=== PATIENT | female | born 1935 | race Asian ===

== ENCOUNTER 2018-06-22 06:45 | Inpatient (IN) | payer MEDICAID, MEDICARE ==
[~2018-06-22] VITALS: Ht 154.9 cm; Wt 58.0 kg
[~2018-06-22 06:45] MED LIST: ACET-66 PO; ACET-784 PR; ASPI81 PO; ATOR80TA PO; BISA10S PR; INSU100I15 SQ; METO25XL PO; MOM30 PO; ONDA4 PO; RANO500T3 PO; SITA100 PO; SLOMG PO
[2018-06-22] MEDS ORDERED: SODIUM CHLORIDE 0.9% 1,000 ML IV ONE ×4 (07:00→11:15)
[2018-06-22] MEDS ORDERED: RAPID SEQUENCE KIT [RSI] 1 EACH KIT ONE (07:07)
[2018-06-22] MEDS ORDERED: SUCCINYLCHOLINE CHLORIDE 20 MG/ML 10 ML VIAL ONE (07:07)
[2018-06-22] MEDS ORDERED: INSLAN SQ (07:47)
[2018-06-22] MEDS ORDERED: PROPOFOL 1000 MG/ISO-OSM 100 ML IV PRN (08:07)
[2018-06-22 08:08] LABS: BASOPHILS % (AUTO) 0.5 % (0.0-2.0); EOSINOPHILS % (AUTO) 0 % (1.0-6.0); HEMATOCRIT 47.6 % (36-46); HEMOGLOBIN 15.2 g/dL (12.0-16.0); LYMPHOCYTES # (AUTO) 0.8 K/uL (1.0-4.8); LYMPHOCYTES % (AUTO) 5.8 % (22.0-44.0); MEAN CORPUSCULAR HEMOGLOBIN 32.3 pg (26.0-34.0); MEAN CORPUSCULAR HGB CONC 31.9 G/dL (31.0-37.0); MEAN CORPUSCULAR VOLUME 101 fL (80-100); MONOCYTES # (AUTO) 1.3 K/uL (0.1-1.0); MONOCYTES % (AUTO) 9.5 % (2.0-9.0); NEUTROPHILS # (AUTO) 11.4 K/uL (1.8-7.7); NEUTROPHILS % (AUTO) 84.2 % (40.0-70.0); PLATELET COUNT (AUTO) 261 K/uL (150-450); RED BLOOD CELL COUNT(AUTO) 4.71 MIL/uL (4.00-5.20); RED CELL DISTRIBUTION WIDTH 14.3 % (11.5-14.5)
[2018-06-22 08:31] LABS: ALBUMIN 2.7 g/dL (3.4-5.0); BILIRUBIN,TOTAL 0.6 mg/dL (0.1-1.0); CALCIUM, TOTAL 8.2 mg/dL (8.8-10.5); CREATININE 2.24 mg/dL (0.60-1.30); TOTAL PROTEIN, SERUM 7.1 g/dL (6.4-8.2)
[2018-06-22 08:32] LABS: LACTIC ACID 3.4 mmol/L (0.4-2.0)
[2018-06-22 08:34] LABS: PROTHROMBIN TIME 10.4 SEC (9.4-11.6)
[2018-06-22] MEDS ORDERED: INSULIN REGULAR, HUMAN 100 UNITS/ML IVP ONE (08:45)
[2018-06-22] MEDS ORDERED: PHENYLEPHRINE 200 MG/D5%-WATER 250 ML IV PRN (09:00)
[2018-06-22] MEDS ORDERED: PIPERACILLIN/TAZO 3.375 GM/D5W 50 ML IV ONE (09:00)
[2018-06-22 09:25] LABS: APPEARANCE,URINE CLEAR (CLEAR); BILIRUBIN,URINE NEGATIVE (NEGATIVE); GLUCOSE, URINE (UA) >=1000 mg/dL (NEGATIVE); KETONES,URINE >=80 mg/dL (NEGATIVE); LEUKOCYTE ESTERASE ,URINE NEGATIVE (NEGATIVE); NITRATE,URINE NEGATIVE (NEGATIVE); OCCULT BLOOD,URINE MODERATE (NEGATIVE); PROTEIN,URINE POS 1+ (NEGATIVE); UROBILINOGEN,URINE 0.2 mg/dL (<=1.0)
[2018-06-22 09:29] LABS: GLUCOSE,POINT OF CARE 493 MG/DL (70-110)
[2018-06-22 09:41] LABS: BACTERIA,URINE Moderate /HPF (None Seen); FINE GRANULAR CASTS,URINE 0-2 /LPF (None Seen); SQUAMOUS EPITHELIAL CELL,UR Few /LPF (None Seen)
[2018-06-22] MEDS ORDERED: HEPARIN SODIUM 25000 UNITS/D5W 250 ML IV PRN ×2 (10:12→18:05)
[2018-06-22 10:14] LABS: GLUCOSE,POINT OF CARE 472 MG/DL (70-110)
[2018-06-22] MEDS ORDERED: INSULIN REGULAR, HUMAN 100 UNITS in SODIUM CHLORIDE 0.9% 99 ML IV PRN ×4 (10:15→11:57)
[2018-06-22] MEDS ORDERED: HEPARIN SODIUM,PORCINE 5,000 UNITS/ML VIAL IVP ONE ×3 (10:15→18:15)
[2018-06-22] MEDS ORDERED: PANTOPRAZOLE SODIUM 40 MG/VIAL IVP SCH (10:15)
[2018-06-22] MEDS ORDERED: HEPARIN SODIUM,PORCINE 5,000 UNITS/ML VIAL IVP PRN ×4 (10:15→18:15)
[2018-06-22 11:53] LABS: GLUCOSE,POINT OF CARE 526 MG/DL (70-110)
[2018-06-22] MEDS ORDERED: SODIUM CHLORIDE 0.45% 1,000 ML IV PRN (11:57)
[2018-06-22] MEDS ORDERED: SODIUM CHLORIDE 0.9% 1,000 ML IV SCH (11:57)
[2018-06-22] MEDS ORDERED: POTASSIUM CHL 20 MEQ/0.45% NS 1,000 ML IV PRN (11:57)
[2018-06-22 12:00] VITALS: BP 142/56
[2018-06-22] MEDS ORDERED: SUCCINYLCHOLINE CHLORIDE 20 MG/ML 10 ML VIAL IVP ONE (12:00)
[2018-06-22] MEDS ORDERED: ETOMIDATE 2 MG/ML 10 ML VIAL IVP ONE (12:00)
[2018-06-22] MEDS ORDERED: DEXTROSE 50%-WATER 25 GM/50 ML SYRINGE IVP PRN (12:00)
[2018-06-22 12:03] LABS: OCCULT BLOOD,GASTRIC FLUID POSITIVE (NEGATIVE)
[2018-06-22 12:35] LABS: CALCIUM, TOTAL 7.8 mg/dL (8.8-10.5); CREATININE 2.09 mg/dL (0.60-1.30); PHOSPHORUS 6.4 mg/dL (2.5-4.9); POTASSIUM 3.8 mmol/L (3.5-5.1)
[2018-06-22] MEDS: INSULIN REGULAR, HUMAN 100 UNITS/ML IVP PRN ×9 (13:26→23:06)
[2018-06-22] MEDS ORDERED: 0.9% SODIUM CHLORIDE 10 ML SYRINGE IVP PRN (13:30)
[2018-06-22] MEDS ORDERED: ONDANSETRON HCL 4 MG/2 ML VIAL IVP PRN (13:30)
[2018-06-22] MEDS: ASPIRIN 81 MG CHEWABLE TABLET PO SCH (15:31)
[2018-06-22] MEDS ORDERED: SODIUM CHLORIDE 0.9% 500 ML IV ONE (15:55)
[2018-06-22 16:00] VITALS: BP 142/64
[2018-06-22] MEDS ORDERED: ASPIRIN 81 MG CHEWABLE TABLET PO SCH (16:15)
[2018-06-22] MEDS ORDERED: DEXTROSE 5%-WATER 1,000 ML IV SCH (16:15)
[2018-06-22] MEDS: POTASSIUM CHLORIDE 40 MEQ in SODIUM CHLORIDE 0.45% 1,000 ML IV PRN ×2 (16:19→23:55)
[2018-06-22] MEDS ORDERED: SODIUM BICARBONATE 150 MEQ in DEXTROSE 5%-WATER 1,000 ML IV ONE (16:45)
[2018-06-22 16:46] LABS: ABG A-A DIFF O2 63.3 mmHg (10-20.0); ABG BASE EXCESS -21.1 mmol/L (-2.0-3.0); ABG CARBOXYHEMOGLOBIN 0.7 % (0.0-1.5); ABG HCO3 10.9 mmol/L (22.0-26.0); ABG METHEMOGLOBIN 0.4 % (0.0-1.5); ABG OXYGEN CONTENT 19.6 mL/dL (15.0-23.0); ABG OXYGEN SATURATION 99.6 % (95.0-98.0); ABG OXYHEMOGLOBIN 98.5 % (94.0-100.0); ABG PH 7.215 (7.35-7.450); ABG TOTAL HEMOGLOBIN 13.7 G/dL (12.0-18.0); PO2, ARTERIAL BG 274.5 mmHg (71.0-79.0); SOURCE, BLOOD GAS ARTERIAL; TEMPERATURE, FAHRENHEIT, BG 97.5 FAHREN (96.0-98.6)
[2018-06-22 16:47] LABS: ABG PCO2 17 mmHg (35-45); O2 DEVICE,BLOOD GAS VENTILATOR (ROOM AIR); PEEP,BG 5 cm H2O; SITE, BLOOD GAS ARTERIAL LINE; VT, ABG 400 ml
[2018-06-22] MEDS ORDERED: HEPARIN SODIUM,PORCINE 1,000 UNITS/ML VIAL IVP ONE ×2 (17:00)
[2018-06-22] MEDS ORDERED: SODIUM CHLORIDE 0.9% 250 ML IV ONE ×3 (17:03→20:19)
[2018-06-22 17:18] LABS: BASOPHILS % (AUTO) 1.2 % (0.0-2.0); EOSINOPHILS % (AUTO) 0.3 % (1.0-6.0); HEMATOCRIT 38.9 % (36-46); HEMOGLOBIN 13.3 g/dL (12.0-16.0); LYMPHOCYTES # (AUTO) 1.4 K/uL (1.0-4.8); LYMPHOCYTES % (AUTO) 9.9 % (22.0-44.0); MEAN CORPUSCULAR HEMOGLOBIN 32.3 pg (26.0-34.0); MEAN CORPUSCULAR HGB CONC 34.1 G/dL (31.0-37.0); MEAN CORPUSCULAR VOLUME 95 fL (80-100); MONOCYTES % (AUTO) 7.1 % (2.0-9.0); NEUTROPHILS # (AUTO) 11.3 K/uL (1.8-7.7); NEUTROPHILS % (AUTO) 81.5 % (40.0-70.0); PLATELET COUNT (AUTO) 196 K/uL (150-450); RED BLOOD CELL COUNT(AUTO) 4.11 MIL/uL (4.00-5.20); RED CELL DISTRIBUTION WIDTH 13.5 % (11.5-14.5)
[2018-06-22 17:29] LABS: CALCIUM, TOTAL 7.7 mg/dL (8.8-10.5); CREATININE 1.86 mg/dL (0.60-1.30); MAGNESIUM 1.4 mg/dL (1.80-2.40); POTASSIUM 3.1 mmol/L (3.5-5.1)
[2018-06-22 17:30] LABS: INR 1.1 (0.9-1.1); PROTHROMBIN TIME 11.1 SEC (9.4-11.6)
[2018-06-22] MEDS ORDERED: VANCOMYCIN HCL 1 GM/D5% WATER 200 ML IV ONE (17:30)
[2018-06-22] MEDS: PIPERACILLIN SODIUM/TAZOBACTAM 2.25 GM in DEXTROSE 5%-WATER 50 ML IV SCH (17:30)
[2018-06-22 17:31] LABS: PHOSPHORUS 1.3 mg/dL (2.5-4.9)
[2018-06-22] MEDS ORDERED: SODIUM PHOS,M-BASIC-D-BASIC 20 MEQ in DEXTROSE 5%-WATER 100 ML IV ONE (18:00)
[2018-06-22] MEDS ORDERED: MAGNESIUM SULFATE 3 GM in DEXTROSE 5%-WATER 100 ML IV ONE (18:00)
[2018-06-22] MEDS: HYDROCORTISONE SOD SUCC 100 MG/2 ML VIAL IVP SCH (18:26)
[2018-06-22] MEDS: ATORVASTATIN CALCIUM 40 MG TABLET PO SCH (18:27)
[2018-06-22] MEDS: DEXTROSE 5%-0.45% SODIUM CHL 1,000 ML IV PRN (18:56)
[2018-06-22 19:11] LABS: ABG A-A DIFF O2 89.4 mmHg (10-20.0); ABG BASE EXCESS -17.3 mmol/L (-2.0-3.0); ABG CARBOXYHEMOGLOBIN 0.1 % (0.0-1.5); ABG HCO3 12.9 mmol/L (22.0-26.0); ABG METHEMOGLOBIN 0.3 % (0.0-1.5); ABG OXYGEN CONTENT 18.4 mL/dL (15.0-23.0); ABG OXYGEN SATURATION 99.4 % (95.0-98.0); ABG PH 7.311 (7.35-7.450); ABG TOTAL HEMOGLOBIN 12.8 G/dL (12.0-18.0); PO2, ARTERIAL BG 249.5 mmHg (71.0-79.0); SOURCE, BLOOD GAS ARTERIAL; TEMPERATURE, FAHRENHEIT, BG 93.4 FAHREN (96.0-98.6)
[2018-06-22 19:12] LABS: ABG PCO2 19 mmHg (35-45); O2 DEVICE,BLOOD GAS VENTILATOR (ROOM AIR); SITE, BLOOD GAS ARTERIAL LINE
[2018-06-22 19:13] LABS: PEEP,BG 5 cm H2O; VT, ABG 400 ml
[2018-06-22 20:00] VITALS: BP 166/45
[2018-06-22] MEDS: POTASSIUM CHL 10 MEQ/WATER 50 ML IV SCH ×4 (20:14→22:07)
[2018-06-22 20:44] LABS: CALCIUM, TOTAL 7.8 mg/dL (8.8-10.5); CREATININE 2.08 mg/dL (0.60-1.30)
[2018-06-22 20:45] LABS: POTASSIUM 2.8 mmol/L (3.5-5.1)
[2018-06-22] MEDS: PANTOPRAZOLE SODIUM 40 MG/VIAL IVP SCH (21:41)
[2018-06-22] MEDS: PROPOFOL 1000 MG/ISO-OSM 100 ML IV PRN (23:57)
[2018-06-23] VITALS: BP 105/25
[2018-06-23] MEDS: PIPERACILLIN SODIUM/TAZOBACTAM 2.25 GM in DEXTROSE 5%-WATER 50 ML IV SCH ×4 (00:06→23:49)
[2018-06-23] MEDS: HYDROCORTISONE SOD SUCC 100 MG/2 ML VIAL IVP SCH ×5 (00:07→23:50)
[2018-06-23 01:28] LABS: CALCIUM, TOTAL 7.6 mg/dL (8.8-10.5); CREATININE 1.93 mg/dL (0.60-1.30); POTASSIUM 3.3 mmol/L (3.5-5.1)
[2018-06-23] MEDS ORDERED: POTASSIUM CHLORIDE 10% 40 MEQ/30 ML LIQUID UDCUP NG ONE (02:00)
[2018-06-23] MEDS: POTASSIUM CHL 10 MEQ/WATER 50 ML IV SCH ×2 (02:20→03:30)
[2018-06-23 04:00] VITALS: BP 105/35
[2018-06-23 04:41] LABS: EOSINOPHILS % (AUTO) 0 % (1.0-6.0); HEMATOCRIT 33.6 % (36-46); HEMOGLOBIN 11.9 g/dL (12.0-16.0); LYMPHOCYTES # (AUTO) 0.2 K/uL (1.0-4.8); LYMPHOCYTES % (AUTO) 2.1 % (22.0-44.0); MEAN CORPUSCULAR HEMOGLOBIN 32.6 pg (26.0-34.0); MEAN CORPUSCULAR HGB CONC 35.4 G/dL (31.0-37.0); MEAN CORPUSCULAR VOLUME 92 fL (80-100); MONOCYTES # (AUTO) 0.1 K/uL (0.1-1.0); MONOCYTES % (AUTO) 0.8 % (2.0-9.0); NEUTROPHILS # (AUTO) 8.7 K/uL (1.8-7.7); PLATELET COUNT (AUTO) 140 K/uL (150-450); RED BLOOD CELL COUNT(AUTO) 3.65 MIL/uL (4.00-5.20); RED CELL DISTRIBUTION WIDTH 13.5 % (11.5-14.5)
[2018-06-23 04:45] LABS: NEUTROPHILS % (AUTO) 97.1 % (40.0-70.0)
[2018-06-23 05:07] LABS: ALBUMIN 1.9 g/dL (3.4-5.0); BILIRUBIN,TOTAL 0.3 mg/dL (0.1-1.0); CALCIUM, TOTAL 7.3 mg/dL (8.8-10.5); CREATININE 1.78 mg/dL (0.60-1.30); MAGNESIUM 2.6 mg/dL (1.80-2.40); TOTAL PROTEIN, SERUM 5.1 g/dL (6.4-8.2)
[2018-06-23 05:08] LABS: GLUCOMETER DEV NAME(LOC) PVLAB146; GLUCOSE,POINT OF CARE 271 MG/DL (70-110)
[2018-06-23 05:08] LABS: GLUCOMETER DEV NAME(LOC) PVLAB146; GLUCOSE,POINT OF CARE 270 MG/DL (70-110)
[2018-06-23 05:08] LABS: GLUCOMETER DEV NAME(LOC) PVLAB146; GLUCOSE,POINT OF CARE 421 MG/DL (70-110)
[2018-06-23 05:08] LABS: GLUCOMETER DEV NAME(LOC) PVLAB146; GLUCOSE,POINT OF CARE 531 MG/DL (70-110)
[2018-06-23 05:08] LABS: GLUCOMETER DEV NAME(LOC) PVLAB146; GLUCOSE,POINT OF CARE 425 MG/DL (70-110)
[2018-06-23 05:08] LABS: GLUCOMETER DEV NAME(LOC) PVLAB146; GLUCOSE,POINT OF CARE 253 MG/DL (70-110)
[2018-06-23 05:08] LABS: GLUCOMETER DEV NAME(LOC) PVLAB146; GLUCOSE,POINT OF CARE 237 MG/DL (70-110)
[2018-06-23 05:08] LABS: GLUCOMETER DEV NAME(LOC) PVLAB146; GLUCOSE,POINT OF CARE 353 MG/DL (70-110)
[2018-06-23 05:08] LABS: GLUCOMETER DEV NAME(LOC) PVLAB146; GLUCOSE,POINT OF CARE 305 MG/DL (70-110)
[2018-06-23 05:08] LABS: GLUCOMETER DEV NAME(LOC) PVLAB146; GLUCOSE,POINT OF CARE 304 MG/DL (70-110)
[2018-06-23 05:08] LABS: GLUCOMETER DEV NAME(LOC) PVLAB146; GLUCOSE,POINT OF CARE 223 MG/DL (70-110)
[2018-06-23 05:09] LABS: PHOSPHORUS 0.6 mg/dL (2.5-4.9)
[2018-06-23] MEDS ORDERED: SODIUM PHOS,M-BASIC-D-BASIC 30 MEQ in DEXTROSE 5%-WATER 150 ML IV ONE (06:00)
[2018-06-23 06:29] LABS: GLUCOMETER DEV NAME(LOC) PVLAB146; GLUCOSE,POINT OF CARE 178 MG/DL (70-110)
[2018-06-23 06:29] LABS: GLUCOMETER DEV NAME(LOC) PVLAB146; GLUCOSE,POINT OF CARE 184 MG/DL (70-110)
[2018-06-23] MEDS: DEXTROSE 5%-0.45% SODIUM CHL 1,000 ML IV PRN (06:47)
[2018-06-23 06:53] LABS: GLUCOSE,POINT OF CARE 206 MG/DL (70-110)
[2018-06-23 06:53] LABS: GLUCOSE,POINT OF CARE 204 MG/DL (70-110)
[2018-06-23 06:53] LABS: GLUCOSE,POINT OF CARE 191 MG/DL (70-110)
[2018-06-23 06:53] LABS: GLUCOSE,POINT OF CARE 184 MG/DL (70-110)
[2018-06-23 07:23] LABS: GLUCOMETER DEV NAME(LOC) PVLAB146; GLUCOSE,POINT OF CARE 162 MG/DL (70-110)
[2018-06-23 07:50] LABS: ABG A-A DIFF O2 39.2 mmHg (10-20.0); ABG BASE EXCESS -12.1 mmol/L (-2.0-3.0); ABG CARBOXYHEMOGLOBIN 0.3 % (0.0-1.5); ABG HCO3 16.5 mmol/L (22.0-26.0); ABG METHEMOGLOBIN 0.2 % (0.0-1.5); ABG OXYGEN CONTENT 16.9 mL/dL (15.0-23.0); ABG OXYHEMOGLOBIN 98.5 % (94.0-100.0); ABG PCO2 20 mmHg (35-45); ABG TOTAL HEMOGLOBIN 11.9 G/dL (12.0-18.0); PO2, ARTERIAL BG 187.4 mmHg (71.0-79.0); SOURCE, BLOOD GAS ARTERIAL; TEMPERATURE, FAHRENHEIT, BG 97.3 FAHREN (96.0-98.6)
[2018-06-23 07:51] LABS: O2 DEVICE,BLOOD GAS VENTILATOR (ROOM AIR); PEEP,BG 5 cm H2O; SITE, BLOOD GAS ARTERIAL LINE; VT, ABG 400 ml
[2018-06-23 08:00] VITALS: BP 146/51
[2018-06-23] MEDS ORDERED: VANCOMYCIN HCL 500 MG in DEXTROSE 5%-WATER 100 ML IV ONE (08:00)
[2018-06-23 10:13] LABS: GLUCOMETER DEV NAME(LOC) PVLAB146; GLUCOSE,POINT OF CARE 106 MG/DL (70-110)
[2018-06-23 10:13] LABS: GLUCOMETER DEV NAME(LOC) PVLAB146; GLUCOSE,POINT OF CARE 117 MG/DL (70-110)
[2018-06-23 10:13] LABS: GLUCOMETER DEV NAME(LOC) PVLAB146; GLUCOSE,POINT OF CARE 147 MG/DL (70-110)
[2018-06-23 11:06] LABS: CALCIUM, TOTAL 7.1 mg/dL (8.8-10.5); CREATININE 1.59 mg/dL (0.60-1.30); PHOSPHORUS 2.9 mg/dL (2.5-4.9); POTASSIUM 5.2 mmol/L (3.5-5.1)
[2018-06-23 11:08] LABS: APPEARANCE,URINE CLOUDY (CLEAR); BILIRUBIN,URINE NEGATIVE (NEGATIVE); GLUCOSE, URINE (UA) 100 mg/dL (NEGATIVE); KETONES,URINE NEGATIVE (NEGATIVE); LEUKOCYTE ESTERASE ,URINE NEGATIVE (NEGATIVE); NITRATE,URINE NEGATIVE (NEGATIVE); OCCULT BLOOD,URINE MODERATE (NEGATIVE); PROTEIN,URINE NEGATIVE (NEGATIVE); UROBILINOGEN,URINE 0.2 mg/dL (<=1.0)
[2018-06-23 11:10] LABS: PROTEIN,URINE RANDOM 11 mg/dL (0-11.9); SODIUM,URINE RANDOM 15 mmol/l (20-110); UREA NITROGEN,URINE RANDOM 156 mg/dL (350-1000)
[2018-06-23] MEDS: PANTOPRAZOLE SODIUM 40 MG/VIAL IVP SCH ×2 (11:11→20:43)
[2018-06-23] MEDS: ATORVASTATIN CALCIUM 40 MG TABLET PO SCH (11:11)
[2018-06-23] MEDS: ASPIRIN 81 MG CHEWABLE TABLET PO SCH (11:11)
[2018-06-23 11:14] LABS: CREATININE,URINE RANDOM < 5.0 mg/dL (30.0-125.0)
[2018-06-23 11:40] LABS: BACTERIA,URINE Moderate /HPF (None Seen); COARSE GRANULAR CASTS,URINE 0-2 /LPF (None Seen); FINE GRANULAR CASTS,URINE 0-2 /LPF (None Seen); WBC,URINE 0-2 /HPF (0-5)
[2018-06-23 12:00] VITALS: BP 145/51
[2018-06-23] MEDS: ACETAMINOPHEN 325 MG TABLET PO PRN (12:59)
[2018-06-23 14:18] LABS: GLUCOMETER DEV NAME(LOC) PVLAB146; GLUCOSE,POINT OF CARE 126 MG/DL (70-110)
[2018-06-23 14:19] LABS: GLUCOMETER DEV NAME(LOC) PVLAB146; GLUCOSE,POINT OF CARE 135 MG/DL (70-110)
[2018-06-23 14:19] LABS: GLUCOMETER DEV NAME(LOC) PVLAB146; GLUCOSE,POINT OF CARE 96 MG/DL (70-110)
[2018-06-23 14:19] LABS: GLUCOMETER DEV NAME(LOC) PVLAB146; GLUCOSE,POINT OF CARE 115 MG/DL (70-110)
[2018-06-23 14:36] LABS: CALCIUM, TOTAL 6.9 mg/dL (8.8-10.5); CREATININE 1.43 mg/dL (0.60-1.30); MAGNESIUM 2.3 mg/dL (1.80-2.40)
[2018-06-23] MEDS ORDERED: DEXTROSE 50%-WATER 25 GM/50 ML SYRINGE IVP PRN (14:45)
[2018-06-23] MEDS: SODIUM CHLORIDE 0.45% 1,000 ML IV SCH (15:51)
[2018-06-23] MEDS: INSULIN LISPRO 100 UNITS/ML SQ PRN ×3 (15:54→23:51)
[2018-06-23 16:00] VITALS: BP 105/36
[2018-06-23] MEDS ORDERED: SODIUM CHLORIDE 0.9% 250 ML IV ONE (16:11)
[2018-06-23] MEDS: PROPOFOL 1000 MG/ISO-OSM 100 ML IV PRN (19:45)
[2018-06-23 20:00] VITALS: BP 118/43
[2018-06-23] MEDS: INSULIN GLARGINE,HUM.REC.ANLOG 100 UNITS/ML SQ SCH (20:48)
[2018-06-24] VITALS: BP 124/49
[2018-06-24] MEDS ORDERED: SODIUM CHLORIDE 0.9% 250 ML IV ONE ×2 (00:08→06:30)
[2018-06-24 04:00] VITALS: BP 136/53
[2018-06-24] MEDS: INSULIN LISPRO 100 UNITS/ML SQ PRN ×2 (04:04→12:54)
[2018-06-24] MEDS: SODIUM CHLORIDE 0.45% 1,000 ML IV SCH ×2 (04:16→14:44)
[2018-06-24 05:10] LABS: CALCIUM, TOTAL 6.5 mg/dL (8.8-10.5); CREATININE 1.38 mg/dL (0.60-1.30); MAGNESIUM 2.3 mg/dL (1.80-2.40); PHOSPHORUS 3.3 mg/dL (2.5-4.9); VANCOMYCIN,RANDOM 14.4 mcg/mL (25.0-50.0)
[2018-06-24 05:28] LABS: GLUCOMETER DEV NAME(LOC) PVLAB146; GLUCOSE,POINT OF CARE 181 MG/DL (70-110)
[2018-06-24] MEDS: HYDROCORTISONE SOD SUCC 100 MG/2 ML VIAL IVP SCH ×3 (06:37→18:08)
[2018-06-24 08:00] VITALS: BP 132/59
[2018-06-24] MEDS: ATORVASTATIN CALCIUM 40 MG TABLET PO SCH (08:07)
[2018-06-24] MEDS: ASPIRIN 81 MG CHEWABLE TABLET PO SCH (08:08)
[2018-06-24] MEDS: PIPERACILLIN SODIUM/TAZOBACTAM 2.25 GM in DEXTROSE 5%-WATER 50 ML IV SCH ×3 (08:08→21:29)
[2018-06-24] MEDS: PANTOPRAZOLE SODIUM 40 MG/VIAL IVP SCH ×2 (08:08→21:27)
[2018-06-24] MEDS: INSULIN GLARGINE,HUM.REC.ANLOG 100 UNITS/ML SQ SCH ×2 (08:40→21:27)
[2018-06-24] MEDS ORDERED: VANCOMYCIN HCL 750 MG in DEXTROSE 5%-WATER 250 ML IV ONE (11:00)
[2018-06-24 11:47] LABS: ABG A-A DIFF O2 29.2 mmHg (10-20.0); ABG BASE EXCESS -3.6 mmol/L (-2.0-3.0); ABG CARBOXYHEMOGLOBIN 0.3 % (0.0-1.5); ABG HCO3 22.4 mmol/L (22.0-26.0); ABG METHEMOGLOBIN 0.3 % (0.0-1.5); ABG OXYGEN CONTENT 15.7 mL/dL (15.0-23.0); ABG OXYHEMOGLOBIN 98.4 % (94.0-100.0); ABG PCO2 27 mmHg (35-45); ABG TOTAL HEMOGLOBIN 11.1 G/dL (12.0-18.0); PO2, ARTERIAL BG 152.6 mmHg (71.0-79.0); SOURCE, BLOOD GAS ARTERIAL; TEMPERATURE, FAHRENHEIT, BG 98.6 FAHREN (96.0-98.6)
[2018-06-24 11:53] LABS: O2 DEVICE,BLOOD GAS VENTILATOR (ROOM AIR); SITE, BLOOD GAS ARTERIAL LINE
[2018-06-24 11:54] LABS: CPAP, BG 0 cm H2O; PRESSURE SUPPORT, BG 8 cm H2O; VENT MODE, BG CPAP (ROOM AIR)
[2018-06-24 12:00] VITALS: BP 117/56
[2018-06-24 14:21] LABS: PROTHROMBIN TIME 10.1 SEC (9.4-11.6)
[2018-06-24] MEDS: ACETAMINOPHEN 325 MG TABLET PO PRN (14:47)
[2018-06-24 16:00] VITALS: BP 150/57
[2018-06-24] MEDS ORDERED: SODIUM CHLORIDE 0.9% 500 ML IV ONE (16:22)
[2018-06-24 20:00] VITALS: BP 141/56
[2018-06-25] VITALS: BP 131/53
[2018-06-25] MEDS: HYDROCORTISONE SOD SUCC 100 MG/2 ML VIAL IVP SCH ×4 (00:05→23:50)
[2018-06-25] MEDS: INSULIN LISPRO 100 UNITS/ML SQ PRN ×4 (00:06→23:54)
[2018-06-25 02:43] LABS: GLUCOMETER DEV NAME(LOC) PVLAB146; GLUCOSE,POINT OF CARE 175 MG/DL (70-110)
[2018-06-25] MEDS: PIPERACILLIN SODIUM/TAZOBACTAM 2.25 GM in DEXTROSE 5%-WATER 50 ML IV SCH ×4 (03:41→22:00)
[2018-06-25 03:53] LABS: GLUCOMETER DEV NAME(LOC) PVLAB146; GLUCOSE,POINT OF CARE 138 MG/DL (70-110)
[2018-06-25 04:00] VITALS: BP 140/53
[2018-06-25] MEDS ORDERED: SODIUM CHLORIDE 0.9% 500 ML IV ONE (04:36)
[2018-06-25] MEDS ORDERED: SODIUM CHLORIDE 0.9% 250 ML IV ONE (04:36)
[2018-06-25 05:41] LABS: CREATININE 0.91 mg/dL (0.60-1.30); PHOSPHORUS 2.1 mg/dL (2.5-4.9)
[2018-06-25 05:44] LABS: POTASSIUM 2.9 mmol/L (3.5-5.1)
[2018-06-25] MEDS: POTASSIUM CHL 10 MEQ/WATER 50 ML IV PRN ×7 (06:31→19:57)
[2018-06-25] MEDS: SODIUM CHLORIDE 0.45% 1,000 ML IV SCH ×2 (06:34→19:59)
[2018-06-25] MEDS ORDERED: METOPROLOL SUCCINATE 25 MG ER TABLET PO ONE (07:45)
[2018-06-25] MEDS: VANCOMYCIN HCL 750 MG in DEXTROSE 5%-WATER 250 ML IV SCH (07:46)
[2018-06-25 08:00] VITALS: BP 123/50
[2018-06-25 08:33] LABS: GLUCOMETER DEV NAME(LOC) PVLAB146; GLUCOSE,POINT OF CARE 149 MG/DL (70-110)
[2018-06-25] MEDS: PANTOPRAZOLE SODIUM 40 MG/VIAL IVP SCH ×2 (09:20→21:32)
[2018-06-25] MEDS: ASPIRIN 81 MG CHEWABLE TABLET PO SCH (09:21)
[2018-06-25] MEDS: ATORVASTATIN CALCIUM 40 MG TABLET PO SCH (09:21)
[2018-06-25] MEDS: INSULIN GLARGINE,HUM.REC.ANLOG 100 UNITS/ML SQ SCH ×2 (09:23→21:35)
[2018-06-25] MEDS: POTASSIUM PHOS/SODIUM PHOS MIXTURE 1 POWDER PACKET PO SCH ×2 (09:55→21:32)
[2018-06-25 12:00] VITALS: BP 127/58
[2018-06-25 16:00] VITALS: BP 142/51
[2018-06-25 20:00] VITALS: BP 130/50
[2018-06-25 22:49] LABS: GLUCOMETER DEV NAME(LOC) PVLAB146; GLUCOSE,POINT OF CARE 139 MG/DL (70-110)
[2018-06-25 22:53] LABS: GLUCOSE,POINT OF CARE 154 MG/DL (70-110)
[2018-06-25 22:53] LABS: GLUCOSE,POINT OF CARE 113 MG/DL (70-110)
[2018-06-25 22:53] LABS: GLUCOSE,POINT OF CARE 148 MG/DL (70-110)
[2018-06-25 22:53] LABS: GLUCOSE,POINT OF CARE 101 MG/DL (70-110)
[2018-06-25 22:53] LABS: GLUCOSE,POINT OF CARE 153 MG/DL (70-110)
[2018-06-25 22:53] LABS: GLUCOSE,POINT OF CARE 140 MG/DL (70-110)
[2018-06-25 22:53] LABS: GLUCOSE,POINT OF CARE 115 MG/DL (70-110)
[2018-06-25 22:53] LABS: GLUCOSE,POINT OF CARE 183 MG/DL (70-110)
[2018-06-25 22:53] LABS: GLUCOSE,POINT OF CARE 183 MG/DL (70-110)
[2018-06-26] VITALS: BP 122/62
[2018-06-26] MEDS ORDERED: SODIUM CHLORIDE 0.9% 500 ML IV ONE (03:36)
[2018-06-26] MEDS ORDERED: SODIUM CHLORIDE 0.9% 250 ML IV ONE ×2 (03:36→18:19)
[2018-06-26] MEDS: PIPERACILLIN SODIUM/TAZOBACTAM 2.25 GM in DEXTROSE 5%-WATER 50 ML IV SCH ×4 (03:59→22:48)
[2018-06-26 04:00] VITALS: BP 144/106
[2018-06-26] MEDS: ACETAMINOPHEN 325 MG TABLET PO PRN (04:00)
[2018-06-26 05:17] LABS: BASOPHILS % (AUTO) 0.2 % (0.0-2.0); EOSINOPHILS % (AUTO) 0.1 % (1.0-6.0); HEMATOCRIT 29.6 % (36-46); HEMOGLOBIN 10.5 g/dL (12.0-16.0); LYMPHOCYTES # (AUTO) 0.7 K/uL (1.0-4.8); LYMPHOCYTES % (AUTO) 8.3 % (22.0-44.0); MEAN CORPUSCULAR HEMOGLOBIN 32.9 pg (26.0-34.0); MEAN CORPUSCULAR HGB CONC 35.5 G/dL (31.0-37.0); MEAN CORPUSCULAR VOLUME 93 fL (80-100); MONOCYTES # (AUTO) 0.3 K/uL (0.1-1.0); MONOCYTES % (AUTO) 3.1 % (2.0-9.0); NEUTROPHILS # (AUTO) 7.5 K/uL (1.8-7.7); PLATELET COUNT (AUTO) 72 K/uL (150-450); RED BLOOD CELL COUNT(AUTO) 3.19 MIL/uL (4.00-5.20); RED CELL DISTRIBUTION WIDTH 14.4 % (11.5-14.5)
[2018-06-26 05:39] LABS: ALBUMIN 1.6 g/dL (3.4-5.0); BILIRUBIN,TOTAL 0.3 mg/dL (0.1-1.0); CALCIUM, TOTAL 6.9 mg/dL (8.8-10.5); CREATININE 0.92 mg/dL (0.60-1.30); MAGNESIUM 1.9 mg/dL (1.80-2.40); PHOSPHORUS 1.7 mg/dL (2.5-4.9); POTASSIUM 3.8 mmol/L (3.5-5.1); TOTAL PROTEIN, SERUM 4.9 g/dL (6.4-8.2)
[2018-06-26] MEDS: INSULIN LISPRO 100 UNITS/ML SQ PRN ×2 (06:00→12:00)
[2018-06-26 06:37] LABS: NEUTROPHILS % (AUTO) 88.3 % (40.0-70.0)
[2018-06-26 06:54] LABS: GLUCOSE,POINT OF CARE 158 MG/DL (70-110)
[2018-06-26 06:54] LABS: GLUCOMETER DEV NAME(LOC) PVLAB146; GLUCOSE,POINT OF CARE 142 MG/DL (70-110)
[2018-06-26] MEDS: HYDROCORTISONE SOD SUCC 100 MG/2 ML VIAL IVP SCH ×2 (07:44→16:16)
[2018-06-26] MEDS: VANCOMYCIN HCL 750 MG in DEXTROSE 5%-WATER 250 ML IV SCH (07:44)
[2018-06-26 08:00] VITALS: BP 131/50
[2018-06-26] MEDS ORDERED: SODIUM PHOS,M-BASIC-D-BASIC 20 MEQ in DEXTROSE 5%-WATER 100 ML IV ONE (08:00)
[2018-06-26] MEDS ORDERED: INSULIN GLARGINE,HUM.REC.ANLOG 100 UNITS/ML SQ SCH (09:00)
[2018-06-26] MEDS: ATORVASTATIN CALCIUM 40 MG TABLET PO SCH (09:02)
[2018-06-26] MEDS: PANTOPRAZOLE SODIUM 40 MG/VIAL IVP SCH ×2 (09:02→21:19)
[2018-06-26] MEDS: METOPROLOL TARTRATE 25 MG TABLET PO SCH ×2 (09:02→21:19)
[2018-06-26] MEDS: ASPIRIN 81 MG CHEWABLE TABLET PO SCH (09:03)
[2018-06-26] MEDS: SODIUM CHLORIDE 0.45% 1,000 ML IV SCH ×2 (09:06→18:22)
[2018-06-26] MEDS: NITROGLYCERIN 2% (1 GM=INCH) PACKET TP SCH ×2 (09:06→16:17)
[2018-06-26 12:00] VITALS: BP 112/38
[2018-06-26] MEDS: HALOPERIDOL LACTATE 5 MG/ML VIAL IVP PRN (13:09)
[2018-06-26 14:53] LABS: GLUCOMETER DEV NAME(LOC) PVLAB146; GLUCOSE,POINT OF CARE 180 MG/DL (70-110)
[2018-06-26 16:00] VITALS: BP 130/76
[2018-06-26 20:00] VITALS: BP 123/54
[2018-06-26] MEDS: INSULIN GLARGINE,HUM.REC.ANLOG 100 UNITS/ML SQ SCH (21:22)
[2018-06-26 22:03] LABS: GLUCOMETER DEV NAME(LOC) PVLAB146; GLUCOSE,POINT OF CARE 104 MG/DL (70-110)
[2018-06-27] VITALS: BP 116/52
[2018-06-27] MEDS: NITROGLYCERIN 2% (1 GM=INCH) PACKET TP SCH ×3 (00:03→17:41)
[2018-06-27] MEDS: HYDROCORTISONE SOD SUCC 100 MG/2 ML VIAL IVP SCH ×3 (00:03→17:41)
[2018-06-27] MEDS: ACETAMINOPHEN 325 MG TABLET PO PRN (00:03)
[2018-06-27 00:28] LABS: GLUCOMETER DEV NAME(LOC) PVLAB146; GLUCOSE,POINT OF CARE 116 MG/DL (70-110)
[2018-06-27] MEDS: HALOPERIDOL LACTATE 5 MG/ML VIAL IVP PRN (02:07)
[2018-06-27 04:00] VITALS: BP 95/55
[2018-06-27] MEDS: PIPERACILLIN SODIUM/TAZOBACTAM 2.25 GM in DEXTROSE 5%-WATER 50 ML IV SCH ×4 (04:49→22:48)
[2018-06-27 05:06] LABS: BASOPHILS % (AUTO) 0.2 % (0.0-2.0); EOSINOPHILS % (AUTO) 0 % (1.0-6.0); HEMATOCRIT 32.6 % (36-46); HEMOGLOBIN 11.2 g/dL (12.0-16.0); LYMPHOCYTES # (AUTO) 0.7 K/uL (1.0-4.8); LYMPHOCYTES % (AUTO) 8.5 % (22.0-44.0); MEAN CORPUSCULAR HGB CONC 34.4 G/dL (31.0-37.0); MEAN CORPUSCULAR VOLUME 93 fL (80-100); MONOCYTES # (AUTO) 0.5 K/uL (0.1-1.0); MONOCYTES % (AUTO) 5.7 % (2.0-9.0); PLATELET COUNT (AUTO) 78 K/uL (150-450); RED BLOOD CELL COUNT(AUTO) 3.51 MIL/uL (4.00-5.20); RED CELL DISTRIBUTION WIDTH 14.2 % (11.5-14.5)
[2018-06-27 05:10] LABS: NEUTROPHILS % (AUTO) 85.6 % (40.0-70.0)
[2018-06-27 05:20] LABS: ALBUMIN 1.9 g/dL (3.4-5.0); BILIRUBIN,TOTAL 0.3 mg/dL (0.1-1.0); CALCIUM, TOTAL 7.3 mg/dL (8.8-10.5); CREATININE 0.92 mg/dL (0.60-1.30); MAGNESIUM 1.9 mg/dL (1.80-2.40); PHOSPHORUS 2.7 mg/dL (2.5-4.9); POTASSIUM 3.3 mmol/L (3.5-5.1); TOTAL PROTEIN, SERUM 5.1 g/dL (6.4-8.2); VANCOMYCIN,RANDOM 15.6 mcg/mL (25.0-50.0)
[2018-06-27] MEDS: POTASSIUM CHL 10 MEQ/WATER 50 ML IV PRN ×3 (05:37→08:49)
[2018-06-27] MEDS: INSULIN LISPRO 100 UNITS/ML SQ PRN (05:40)
[2018-06-27 06:29] LABS: GLUCOMETER DEV NAME(LOC) PVLAB146; GLUCOSE,POINT OF CARE 142 MG/DL (70-110)
[2018-06-27] MEDS: VANCOMYCIN HCL 750 MG in DEXTROSE 5%-WATER 250 ML IV SCH (07:51)
[2018-06-27] MEDS: SODIUM CHLORIDE 0.45% 1,000 ML IV SCH (07:52)
[2018-06-27] MEDS: PANTOPRAZOLE SODIUM 40 MG/VIAL IVP SCH ×2 (07:53→21:25)
[2018-06-27] MEDS: METOPROLOL TARTRATE 25 MG TABLET PO SCH (07:54)
[2018-06-27] MEDS: ASPIRIN 81 MG CHEWABLE TABLET PO SCH (07:55)
[2018-06-27] MEDS: ATORVASTATIN CALCIUM 40 MG TABLET PO SCH (07:56)
[2018-06-27] MEDS: INSULIN GLARGINE,HUM.REC.ANLOG 100 UNITS/ML SQ SCH ×2 (07:59→21:26)
[2018-06-27 08:00] VITALS: BP 124/60
[2018-06-27 10:57] LABS: ABG A-A DIFF O2 67.1 mmHg (10-20.0); ABG BASE EXCESS -3.2 mmol/L (-2.0-3.0); ABG CARBOXYHEMOGLOBIN 0.3 % (0.0-1.5); ABG HCO3 22.3 mmol/L (22.0-26.0); ABG METHEMOGLOBIN 0.2 % (0.0-1.5); ABG OXYGEN CONTENT 14.4 mL/dL (15.0-23.0); ABG OXYGEN SATURATION 97.8 % (95.0-98.0); ABG OXYHEMOGLOBIN 97.3 % (94.0-100.0); ABG PCO2 33 mmHg (35-45); ABG PH 7.429 (7.35-7.450); ABG TOTAL HEMOGLOBIN 10.4 G/dL (12.0-18.0); PO2, ARTERIAL BG 108.5 mmHg (71.0-79.0); SOURCE, BLOOD GAS ARTERIAL; TEMPERATURE, FAHRENHEIT, BG 98.6 FAHREN (96.0-98.6)
[2018-06-27 10:58] LABS: CPAP, BG 0 cm H2O; O2 DEVICE,BLOOD GAS VENTILATOR (ROOM AIR); PEEP,BG 0 cm H2O; PRESSURE SUPPORT, BG 8 cm H2O; SITE, BLOOD GAS LFT RADIAL; SPONTANEOUS VT, BG 354 ml; VENT MODE, BG SPONTANEOUS (ROOM AIR)
[2018-06-27 12:00] VITALS: BP 138/71
[2018-06-27] MEDS ORDERED: 0.9% SODIUM CHLORIDE 5 ML NEB SOLUTION NEB ONE ×3 (12:52→16:49)
[2018-06-27] MEDS: RACEPINEPHRINE HCL 2.25% 0.5 ML NEB SOLUTION NEB SCH ×3 (12:58→16:51)
[2018-06-27 16:00] VITALS: BP 141/56
[2018-06-27 17:43] LABS: GLUCOMETER DEV NAME(LOC) PVLAB146; GLUCOSE,POINT OF CARE 139 MG/DL (70-110)
[2018-06-27 20:00] VITALS: BP 126/56
[2018-06-27] MEDS ORDERED: METOPROLOL TARTRATE 5 MG/5 ML VIAL IVP SCH (21:00)
[2018-06-27 22:48] LABS: GLUCOMETER DEV NAME(LOC) PVLAB146; GLUCOSE,POINT OF CARE 114 MG/DL (70-110)
[2018-06-28] VITALS: BP 136/77
[2018-06-28] MEDS: NITROGLYCERIN 2% (1 GM=INCH) PACKET TP SCH ×3 (00:47→17:02)
[2018-06-28] MEDS: HYDROCORTISONE SOD SUCC 100 MG/2 ML VIAL IVP SCH ×3 (00:48→17:02)
[2018-06-28] MEDS: HALOPERIDOL LACTATE 5 MG/ML VIAL IVP PRN (02:13)
[2018-06-28 02:18] LABS: GLUCOSE,POINT OF CARE 110 MG/DL (70-110)
[2018-06-28 02:18] LABS: GLUCOSE,POINT OF CARE 168 MG/DL (70-110)
[2018-06-28 04:00] VITALS: BP 150/77
[2018-06-28] MEDS: PIPERACILLIN SODIUM/TAZOBACTAM 2.25 GM in DEXTROSE 5%-WATER 50 ML IV SCH ×4 (04:02→21:54)
[2018-06-28 05:10] LABS: BASOPHILS % (AUTO) 0.3 % (0.0-2.0); EOSINOPHILS % (AUTO) 0.2 % (1.0-6.0); HEMATOCRIT 30.7 % (36-46); HEMOGLOBIN 10.6 g/dL (12.0-16.0); LYMPHOCYTES # (AUTO) 0.4 K/uL (1.0-4.8); LYMPHOCYTES % (AUTO) 8.9 % (22.0-44.0); MEAN CORPUSCULAR HEMOGLOBIN 32.6 pg (26.0-34.0); MEAN CORPUSCULAR HGB CONC 34.6 G/dL (31.0-37.0); MEAN CORPUSCULAR VOLUME 94 fL (80-100); MONOCYTES # (AUTO) 0.5 K/uL (0.1-1.0); MONOCYTES % (AUTO) 9.4 % (2.0-9.0); NEUTROPHILS % (AUTO) 81.2 % (40.0-70.0); PLATELET COUNT (AUTO) 107 K/uL (150-450); RED BLOOD CELL COUNT(AUTO) 3.26 MIL/uL (4.00-5.20); RED CELL DISTRIBUTION WIDTH 14.3 % (11.5-14.5)
[2018-06-28 05:22] LABS: ALBUMIN 1.9 g/dL (3.4-5.0); BILIRUBIN,TOTAL 0.4 mg/dL (0.1-1.0); CALCIUM, TOTAL 7.5 mg/dL (8.8-10.5); CREATININE 0.93 mg/dL (0.60-1.30); MAGNESIUM 1.9 mg/dL (1.80-2.40); POTASSIUM 3.3 mmol/L (3.5-5.1); TOTAL PROTEIN, SERUM 5.2 g/dL (6.4-8.2)
[2018-06-28] MEDS: POTASSIUM CHL 10 MEQ/WATER 50 ML IV PRN ×3 (06:46→09:40)
[2018-06-28] MEDS: VANCOMYCIN HCL 750 MG in DEXTROSE 5%-WATER 250 ML IV SCH (07:46)
[2018-06-28 08:00] VITALS: BP 143/87
[2018-06-28] MEDS: ATORVASTATIN CALCIUM 40 MG TABLET PO SCH (08:55)
[2018-06-28] MEDS: METOPROLOL TARTRATE 25 MG TABLET PO SCH ×2 (08:55→21:00)
[2018-06-28] MEDS: PANTOPRAZOLE SODIUM 40 MG/VIAL IVP SCH ×2 (08:55→21:54)
[2018-06-28] MEDS: ASPIRIN 81 MG CHEWABLE TABLET PO SCH (08:56)
[2018-06-28] MEDS: INSULIN GLARGINE,HUM.REC.ANLOG 100 UNITS/ML SQ SCH ×2 (09:00→21:55)
[2018-06-28 11:03] LABS: GLUCOSE,POINT OF CARE 94 MG/DL (70-110)
[2018-06-28 12:00] VITALS: BP 125/78
[2018-06-28] MEDS: LISINOPRIL 5 MG TABLET PO SCH (14:06)
[2018-06-28] MEDS: ALBUTEROL SULFATE 2.5 MG/0.5 ML NEB SOLUTION NEB SCH ×2 (15:55→19:42)
[2018-06-28] MEDS: IPRATROPIUM BROMIDE 0.5 MG/2.5 ML NEB SOLUTION NEB SCH ×2 (15:55→19:42)
[2018-06-28 16:00] VITALS: BP 149/64
[2018-06-28 17:44] LABS: GLUCOMETER DEV NAME(LOC) PVLAB146; GLUCOSE,POINT OF CARE 172 MG/DL (70-110)
[2018-06-28 20:00] VITALS: BP 111/58
[2018-06-28 21:58] LABS: GLUCOMETER DEV NAME(LOC) PVLAB146; GLUCOSE,POINT OF CARE 128 MG/DL (70-110)
[2018-06-29] VITALS: BP 98/55
[2018-06-29] MEDS: HYDROCORTISONE SOD SUCC 100 MG/2 ML VIAL IVP SCH ×3 (01:11→16:00)
[2018-06-29] MEDS: NITROGLYCERIN 2% (1 GM=INCH) PACKET TP SCH ×3 (01:11→16:40)
[2018-06-29] MEDS: IPRATROPIUM BROMIDE 0.5 MG/2.5 ML NEB SOLUTION NEB SCH ×4 (02:20→19:59)
[2018-06-29] MEDS: ALBUTEROL SULFATE 2.5 MG/0.5 ML NEB SOLUTION NEB SCH ×4 (02:20→19:59)
[2018-06-29 04:00] VITALS: BP 106/67
[2018-06-29] MEDS: PIPERACILLIN SODIUM/TAZOBACTAM 2.25 GM in DEXTROSE 5%-WATER 50 ML IV SCH ×4 (04:01→22:56)
[2018-06-29 05:02] LABS: BASOPHILS % (AUTO) 0.2 % (0.0-2.0); EOSINOPHILS % (AUTO) 0.1 % (1.0-6.0); HEMATOCRIT 31.3 % (36-46); LYMPHOCYTES # (AUTO) 0.5 K/uL (1.0-4.8); LYMPHOCYTES % (AUTO) 9.2 % (22.0-44.0); MEAN CORPUSCULAR HEMOGLOBIN 32.5 pg (26.0-34.0); MEAN CORPUSCULAR VOLUME 93 fL (80-100); MONOCYTES # (AUTO) 0.6 K/uL (0.1-1.0); MONOCYTES % (AUTO) 10.3 % (2.0-9.0); NEUTROPHILS # (AUTO) 4.8 K/uL (1.8-7.7); NEUTROPHILS % (AUTO) 80.2 % (40.0-70.0); PLATELET COUNT (AUTO) 150 K/uL (150-450); RED BLOOD CELL COUNT(AUTO) 3.38 MIL/uL (4.00-5.20); RED CELL DISTRIBUTION WIDTH 14.2 % (11.5-14.5)
[2018-06-29] MEDS: DEXTROSE 50%-WATER 25 GM/50 ML SYRINGE IVP PRN (05:40)
[2018-06-29 05:53] LABS: BILIRUBIN,TOTAL 0.4 mg/dL (0.1-1.0); CALCIUM, TOTAL 7.7 mg/dL (8.8-10.5); CREATININE 0.94 mg/dL (0.60-1.30); MAGNESIUM 1.8 mg/dL (1.80-2.40); POTASSIUM 3.1 mmol/L (3.5-5.1)
[2018-06-29 05:54] LABS: GLUCOMETER DEV NAME(LOC) PVLAB146; GLUCOSE,POINT OF CARE 63 MG/DL (70-110)
[2018-06-29 06:03] LABS: GLUCOMETER DEV NAME(LOC) PVLAB146; GLUCOSE,POINT OF CARE 214 MG/DL (70-110)
[2018-06-29 08:00] VITALS: BP 105/80
[2018-06-29] MEDS: INSULIN GLARGINE,HUM.REC.ANLOG 100 UNITS/ML SQ SCH ×2 (09:00→22:29)
[2018-06-29] MEDS: VANCOMYCIN HCL 750 MG in DEXTROSE 5%-WATER 250 ML IV SCH (09:44)
[2018-06-29] MEDS: PANTOPRAZOLE SODIUM 40 MG/VIAL IVP SCH ×2 (09:45→22:30)
[2018-06-29] MEDS: LISINOPRIL 5 MG TABLET PO SCH (09:46)
[2018-06-29] MEDS: ATORVASTATIN CALCIUM 40 MG TABLET PO SCH (09:46)
[2018-06-29] MEDS: ASPIRIN 81 MG CHEWABLE TABLET PO SCH (09:47)
[2018-06-29] MEDS: METOPROLOL TARTRATE 25 MG TABLET PO SCH ×2 (09:47→16:40)
[2018-06-29] MEDS ORDERED: DIGOXIN 250 MCG/ML 2 ML AMP IVP ONE (10:15)
[2018-06-29] MEDS: POTASSIUM CHL 10 MEQ/WATER 50 ML IV PRN ×3 (10:24→12:42)
[2018-06-29] MEDS ORDERED: HEPARIN SODIUM 25000 UNITS/D5W 250 ML IV PRN (11:13)
[2018-06-29] MEDS ORDERED: HEPARIN SODIUM,PORCINE 5,000 UNITS/ML VIAL IVP PRN ×2 (11:15)
[2018-06-29] MEDS: HEPARIN SODIUM,PORCINE 5,000 UNITS/ML VIAL IVP ONE ×2 (11:15→22:56)
[2018-06-29 12:00] VITALS: BP 111/69
[2018-06-29] MEDS: INSULIN LISPRO 100 UNITS/ML SQ PRN ×2 (13:32→17:53)
[2018-06-29 14:09] LABS: GLUCOSE,POINT OF CARE 131 MG/DL (70-110)
[2018-06-29 14:10] LABS: GLUCOSE,POINT OF CARE 170 MG/DL (70-110)
[2018-06-29 16:00] VITALS: BP 128/54
[2018-06-29] MEDS ORDERED: DEXTROSE 5%-WATER 1,000 ML IV ONE (18:15)
[2018-06-29 20:00] VITALS: BP 140/98
[2018-06-29 22:29] LABS: INR 1.1 (0.9-1.1); PROTHROMBIN TIME 11.1 SEC (9.4-11.6)
[2018-06-29] MEDS ORDERED: SODIUM CHLORIDE 0.9% 250 ML IV ONE (23:06)
[2018-06-30] VITALS (7 sets, daily range): BP systolic 101–140; BP diastolic 52–88
[2018-06-30] MEDS: NITROGLYCERIN 2% (1 GM=INCH) PACKET TP SCH ×4 (00:21→23:54)
[2018-06-30] MEDS: HYDROCORTISONE SOD SUCC 100 MG/2 ML VIAL IVP SCH ×3 (00:21→16:39)
[2018-06-30] MEDS: METOPROLOL TARTRATE 25 MG TABLET PO SCH ×4 (00:21→23:54)
[2018-06-30] MEDS: ALBUTEROL SULFATE 2.5 MG/0.5 ML NEB SOLUTION NEB SCH ×4 (01:36→20:12)
[2018-06-30] MEDS: IPRATROPIUM BROMIDE 0.5 MG/2.5 ML NEB SOLUTION NEB SCH ×4 (01:36→20:12)
[2018-06-30 04:57] LABS: BASOPHILS % (AUTO) 0.2 % (0.0-2.0); EOSINOPHILS % (AUTO) 0.2 % (1.0-6.0); HEMATOCRIT 29.5 % (36-46); HEMOGLOBIN 10.2 g/dL (12.0-16.0); LYMPHOCYTES # (AUTO) 0.6 K/uL (1.0-4.8); LYMPHOCYTES % (AUTO) 6.4 % (22.0-44.0); MEAN CORPUSCULAR HGB CONC 34.7 G/dL (31.0-37.0); MEAN CORPUSCULAR VOLUME 95 fL (80-100); MONOCYTES # (AUTO) 0.8 K/uL (0.1-1.0); MONOCYTES % (AUTO) 7.7 % (2.0-9.0); NEUTROPHILS # (AUTO) 8.5 K/uL (1.8-7.7); PLATELET COUNT (AUTO) 153 K/uL (150-450); RED CELL DISTRIBUTION WIDTH 14.2 % (11.5-14.5)
[2018-06-30 04:58] LABS: NEUTROPHILS % (AUTO) 85.5 % (40.0-70.0)
[2018-06-30 05:10] LABS: BILIRUBIN,TOTAL 0.4 mg/dL (0.1-1.0); CALCIUM, TOTAL 7.9 mg/dL (8.8-10.5); CREATININE 1.11 mg/dL (0.60-1.30); MAGNESIUM 1.6 mg/dL (1.80-2.40); POTASSIUM 4.2 mmol/L (3.5-5.1); TOTAL PROTEIN, SERUM 5.4 g/dL (6.4-8.2)
[2018-06-30] MEDS: PIPERACILLIN SODIUM/TAZOBACTAM 2.25 GM in DEXTROSE 5%-WATER 50 ML IV SCH ×4 (05:10→22:49)
[2018-06-30] MEDS: INSULIN LISPRO 100 UNITS/ML SQ PRN ×4 (05:58→21:34)
[2018-06-30 06:24] LABS: GLUCOMETER DEV NAME(LOC) PVLAB146; GLUCOSE,POINT OF CARE 231 MG/DL (70-110)
[2018-06-30] MEDS: VANCOMYCIN HCL 750 MG in DEXTROSE 5%-WATER 250 ML IV SCH (08:06)
[2018-06-30] MEDS: PANTOPRAZOLE SODIUM 40 MG/VIAL IVP SCH ×2 (08:07→21:28)
[2018-06-30] MEDS: ATORVASTATIN CALCIUM 40 MG TABLET PO SCH (08:07)
[2018-06-30] MEDS: ASPIRIN 81 MG CHEWABLE TABLET PO SCH (08:07)
[2018-06-30] MEDS: LISINOPRIL 5 MG TABLET PO SCH (08:08)
[2018-06-30] MEDS: INSULIN GLARGINE,HUM.REC.ANLOG 100 UNITS/ML SQ SCH ×2 (08:11→21:34)
[2018-06-30] MEDS: CLOPIDOGREL BISULFATE 75 MG TABLET PO SCH (11:51)
[2018-06-30 12:03] LABS: GLUCOMETER DEV NAME(LOC) PVLAB146; GLUCOSE,POINT OF CARE 255 MG/DL (70-110)
[2018-06-30 19:04] LABS: GLUCOMETER DEV NAME(LOC) PVLAB146; GLUCOSE,POINT OF CARE 260 MG/DL (70-110)
[2018-06-30 21:59] LABS: GLUCOMETER DEV NAME(LOC) 5N 1P; GLUCOSE,POINT OF CARE 318 MG/DL (70-110)
[2018-06-30] MEDS: ALBUTEROL SULFATE 2.5 MG/0.5 ML NEB SOLUTION NEB PRN (22:29)
[2018-06-30] MEDS: IPRATROPIUM BROMIDE 0.5 MG/2.5 ML NEB SOLUTION NEB PRN (22:30)
[2018-06-30] MEDS ORDERED: SODIUM CHLORIDE 0.9% 250 ML IV ONE (22:36)
[2018-07-01] MEDS: ALBUTEROL SULFATE 2.5 MG/0.5 ML NEB SOLUTION NEB SCH ×4 (02:26→19:57)
[2018-07-01] MEDS: IPRATROPIUM BROMIDE 0.5 MG/2.5 ML NEB SOLUTION NEB SCH ×4 (02:27→19:57)
[2018-07-01 03:47] VITALS: BP 139/82
[2018-07-01] MEDS: PIPERACILLIN SODIUM/TAZOBACTAM 2.25 GM in DEXTROSE 5%-WATER 50 ML IV SCH ×4 (05:10→22:40)
[2018-07-01] MEDS: INSULIN LISPRO 100 UNITS/ML SQ PRN (06:17)
[2018-07-01 08:29] VITALS: BP 135/63
[2018-07-01 08:30] LABS: BASOPHILS % (AUTO) 0.2 % (0.0-2.0); EOSINOPHILS % (AUTO) 0.2 % (1.0-6.0); HEMATOCRIT 30.5 % (36-46); HEMOGLOBIN 10.6 g/dL (12.0-16.0); LYMPHOCYTES # (AUTO) 1.2 K/uL (1.0-4.8); LYMPHOCYTES % (AUTO) 9.4 % (22.0-44.0); MEAN CORPUSCULAR HGB CONC 34.8 G/dL (31.0-37.0); MEAN CORPUSCULAR VOLUME 95 fL (80-100); MONOCYTES # (AUTO) 1.1 K/uL (0.1-1.0); MONOCYTES % (AUTO) 8.5 % (2.0-9.0); NEUTROPHILS # (AUTO) 10.1 K/uL (1.8-7.7); NEUTROPHILS % (AUTO) 81.7 % (40.0-70.0); PLATELET COUNT (AUTO) 205 K/uL (150-450); RED BLOOD CELL COUNT(AUTO) 3.22 MIL/uL (4.00-5.20); RED CELL DISTRIBUTION WIDTH 13.9 % (11.5-14.5)
[2018-07-01 09:08] LABS: ALBUMIN 2.2 g/dL (3.4-5.0); BILIRUBIN,TOTAL 0.4 mg/dL (0.1-1.0); CALCIUM, TOTAL 8.2 mg/dL (8.8-10.5); CREATININE 1.15 mg/dL (0.60-1.30); MAGNESIUM 1.7 mg/dL (1.80-2.40); POTASSIUM 3.5 mmol/L (3.5-5.1); TOTAL PROTEIN, SERUM 5.5 g/dL (6.4-8.2); VANCOMYCIN,RANDOM 16.7 mcg/mL (25.0-50.0)
[2018-07-01] MEDS: PANTOPRAZOLE SODIUM 40 MG/VIAL IVP SCH ×2 (09:09→21:46)
[2018-07-01] MEDS: ATORVASTATIN CALCIUM 40 MG TABLET PO SCH (09:10)
[2018-07-01] MEDS: CLOPIDOGREL BISULFATE 75 MG TABLET PO SCH (09:10)
[2018-07-01] MEDS: ASPIRIN 81 MG CHEWABLE TABLET PO SCH (09:10)
[2018-07-01] MEDS: METOPROLOL TARTRATE 25 MG TABLET PO SCH (09:10)
[2018-07-01] MEDS: NITROGLYCERIN 2% (1 GM=INCH) PACKET TP SCH ×2 (09:10→16:00)
[2018-07-01] MEDS: LISINOPRIL 5 MG TABLET PO SCH (09:10)
[2018-07-01] MEDS: INSULIN GLARGINE,HUM.REC.ANLOG 100 UNITS/ML SQ SCH ×2 (09:16→21:00)
[2018-07-01 09:49] LABS: GLUCOMETER DEV NAME(LOC) 5N 1P; GLUCOSE,POINT OF CARE 238 MG/DL (70-110)
[2018-07-01] MEDS ORDERED: MAGNESIUM SULFATE 2 GM/WATER 50 ML IV ONE (10:00)
[2018-07-01] MEDS: METOPROLOL TARTRATE 50 MG TABLET PO SCH ×2 (10:00→21:00)
[2018-07-01] MEDS ORDERED: POTASSIUM CHLORIDE 20 MEQ ER TABLET PO ONE ×2 (10:00→10:45)
[2018-07-01] MEDS ORDERED: MAGNESIUM SULFATE 1 GM in DEXTROSE 5%-WATER 50 ML IV ONE (10:45)
[2018-07-01 11:40] VITALS: BP 104/48
[2018-07-01] MEDS: DEXTROSE 50%-WATER 25 GM/50 ML SYRINGE IVP PRN (11:46)
[2018-07-01] MEDS: ALBUTEROL SULFATE 2.5 MG/0.5 ML NEB SOLUTION NEB PRN (12:05)
[2018-07-01] MEDS: IPRATROPIUM BROMIDE 0.5 MG/2.5 ML NEB SOLUTION NEB PRN (12:05)
[2018-07-01 12:13] LABS: ABG BASE EXCESS 2.5 mmol/L (-2.0-3.0); ABG CARBOXYHEMOGLOBIN 0.5 % (0.0-1.5); ABG HCO3 26.6 mmol/L (22.0-26.0); ABG METHEMOGLOBIN 0.1 % (0.0-1.5); ABG OXYGEN CONTENT 13.2 mL/dL (15.0-23.0); ABG OXYGEN SATURATION 98.5 % (95.0-98.0); ABG OXYHEMOGLOBIN 97.9 % (94.0-100.0); ABG PCO2 41 mmHg (35-45); ABG PH 7.437 (7.35-7.450); ABG TOTAL HEMOGLOBIN 9.4 G/dL (12.0-18.0); PO2, ARTERIAL BG 118.8 mmHg (71.0-79.0); SOURCE, BLOOD GAS ARTERIAL; TEMPERATURE, FAHRENHEIT, BG 98.2 FAHREN (96.0-98.6)
[2018-07-01 12:14] LABS: O2 DEVICE,BLOOD GAS AEROSOL MASK (ROOM AIR); SITE, BLOOD GAS LFT RADIAL
[2018-07-01 15:30] VITALS: BP 114/66
[2018-07-01 15:39] LABS: GLUCOSE,POINT OF CARE 216 MG/DL (70-110)
[2018-07-01 15:39] LABS: GLUCOSE,POINT OF CARE 245 MG/DL (70-110)
[2018-07-01 20:03] VITALS: BP 127/71
[2018-07-02] VITALS (7 sets, daily range): BP systolic 101–124; BP diastolic 42–89
[2018-07-02] MEDS: IPRATROPIUM BROMIDE 0.5 MG/2.5 ML NEB SOLUTION NEB SCH ×4 (01:31→19:49)
[2018-07-02] MEDS: ALBUTEROL SULFATE 2.5 MG/0.5 ML NEB SOLUTION NEB SCH ×4 (01:31→19:49)
[2018-07-02] MEDS: PIPERACILLIN SODIUM/TAZOBACTAM 2.25 GM in DEXTROSE 5%-WATER 50 ML IV SCH ×4 (04:58→22:06)
[2018-07-02] MEDS: INSULIN LISPRO 100 UNITS/ML SQ PRN ×2 (06:40→18:35)
[2018-07-02 07:44] LABS: BASOPHILS % (AUTO) 0.1 % (0.0-2.0); EOSINOPHILS % (AUTO) 0 % (1.0-6.0); HEMOGLOBIN 9.3 g/dL (12.0-16.0); LYMPHOCYTES # (AUTO) 0.4 K/uL (1.0-4.8); LYMPHOCYTES % (AUTO) 3.4 % (22.0-44.0); MEAN CORPUSCULAR HEMOGLOBIN 33.4 pg (26.0-34.0); MEAN CORPUSCULAR HGB CONC 34.5 G/dL (31.0-37.0); MEAN CORPUSCULAR VOLUME 97 fL (80-100); MONOCYTES # (AUTO) 0.7 K/uL (0.1-1.0); MONOCYTES % (AUTO) 5.6 % (2.0-9.0); NEUTROPHILS # (AUTO) 11.5 K/uL (1.8-7.7); PLATELET COUNT (AUTO) 195 K/uL (150-450)
[2018-07-02 07:55] LABS: NEUTROPHILS % (AUTO) 90.9 % (40.0-70.0)
[2018-07-02 07:59] LABS: BILIRUBIN,TOTAL 0.6 mg/dL (0.1-1.0); CALCIUM, TOTAL 7.9 mg/dL (8.8-10.5); CREATININE 1.29 mg/dL (0.60-1.30); MAGNESIUM 1.8 mg/dL (1.80-2.40); POTASSIUM 4.9 mmol/L (3.5-5.1); TOTAL PROTEIN, SERUM 5.5 g/dL (6.4-8.2)
[2018-07-02] MEDS: NITROGLYCERIN 2% (1 GM=INCH) PACKET TP SCH ×3 (08:00→17:28)
[2018-07-02] MEDS: LISINOPRIL 5 MG TABLET PO SCH (09:00)
[2018-07-02] MEDS: ATORVASTATIN CALCIUM 40 MG TABLET PO SCH (09:00)
[2018-07-02] MEDS: CLOPIDOGREL BISULFATE 75 MG TABLET PO SCH (09:00)
[2018-07-02] MEDS: INSULIN GLARGINE,HUM.REC.ANLOG 100 UNITS/ML SQ SCH ×2 (09:00→21:00)
[2018-07-02] MEDS: ASPIRIN 81 MG CHEWABLE TABLET PO SCH (09:00)
[2018-07-02] MEDS: METOPROLOL TARTRATE 50 MG TABLET PO SCH ×2 (09:00→21:00)
[2018-07-02 09:13] LABS: ABG A-A DIFF O2 179.9 mmHg (10-20.0); ABG BASE EXCESS 2.5 mmol/L (-2.0-3.0); ABG CARBOXYHEMOGLOBIN 0.2 % (0.0-1.5); ABG HCO3 26.9 mmol/L (22.0-26.0); ABG METHEMOGLOBIN 0.1 % (0.0-1.5); ABG OXYGEN CONTENT 13.1 mL/dL (15.0-23.0); ABG OXYHEMOGLOBIN 97.7 % (94.0-100.0); ABG PCO2 31 mmHg (35-45); ABG PH 7.534 (7.35-7.450); ABG TOTAL HEMOGLOBIN 9.4 G/dL (12.0-18.0); PO2, ARTERIAL BG 99.1 mmHg (71.0-79.0); SOURCE, BLOOD GAS ARTERIAL; TEMPERATURE, FAHRENHEIT, BG 98.6 FAHREN (96.0-98.6)
[2018-07-02 09:14] LABS: O2 DEVICE,BLOOD GAS CANNULA (ROOM AIR); SITE, BLOOD GAS RT BRACHIAL
[2018-07-02 09:44] LABS: GLUCOMETER DEV NAME(LOC) 5N 1P; GLUCOSE,POINT OF CARE 230 MG/DL (70-110)
[2018-07-02 09:44] LABS: GLUCOMETER DEV NAME(LOC) 5N 1P; GLUCOSE,POINT OF CARE 51 MG/DL (70-110)
[2018-07-02] MEDS: PANTOPRAZOLE SODIUM 40 MG/VIAL IVP SCH ×2 (10:08→21:20)
[2018-07-02] MEDS ORDERED: FUROSEMIDE 20 MG/2 ML VIAL IVP ONE (18:15)
[2018-07-02 19:26] LABS: CHOL/HDL RATIO 2.6 (3.9-5.7)
[2018-07-03] VITALS (7 sets, daily range): BP systolic 97–149; BP diastolic 61–88
[2018-07-03] MEDS: NITROGLYCERIN 2% (1 GM=INCH) PACKET TP SCH ×3 (00:12→17:32)
[2018-07-03] MEDS: IPRATROPIUM BROMIDE 0.5 MG/2.5 ML NEB SOLUTION NEB SCH ×4 (02:16→22:17)
[2018-07-03] MEDS: ALBUTEROL SULFATE 2.5 MG/0.5 ML NEB SOLUTION NEB SCH ×4 (02:16→22:17)
[2018-07-03] MEDS: PIPERACILLIN SODIUM/TAZOBACTAM 2.25 GM in DEXTROSE 5%-WATER 50 ML IV SCH ×4 (04:43→22:26)
[2018-07-03 05:49] LABS: GLUCOMETER DEV NAME(LOC) 5N.2; GLUCOSE,POINT OF CARE 283 MG/DL (70-110)
[2018-07-03 05:49] LABS: GLUCOMETER DEV NAME(LOC) 5N.2; GLUCOSE,POINT OF CARE 294 MG/DL (70-110)
[2018-07-03 05:49] LABS: GLUCOMETER DEV NAME(LOC) 5N.2; GLUCOSE,POINT OF CARE 323 MG/DL (70-110)
[2018-07-03 06:44] LABS: GLUCOMETER DEV NAME(LOC) 5N.2; GLUCOSE,POINT OF CARE 282 MG/DL (70-110)
[2018-07-03] MEDS: METOPROLOL TARTRATE 50 MG TABLET PO SCH ×2 (08:53→22:15)
[2018-07-03] MEDS: PANTOPRAZOLE SODIUM 40 MG/VIAL IVP SCH ×2 (08:53→22:00)
[2018-07-03] MEDS: CLOPIDOGREL BISULFATE 75 MG TABLET PO SCH (08:53)
[2018-07-03] MEDS: ASPIRIN 81 MG CHEWABLE TABLET PO SCH (08:53)
[2018-07-03] MEDS: ATORVASTATIN CALCIUM 40 MG TABLET PO SCH (08:53)
[2018-07-03] MEDS: LISINOPRIL 5 MG TABLET PO SCH (08:54)
[2018-07-03] MEDS: INSULIN GLARGINE,HUM.REC.ANLOG 100 UNITS/ML SQ SCH ×2 (09:00→21:00)
[2018-07-03 09:20] LABS: CREATININE 1.13 mg/dL (0.60-1.30); MAGNESIUM 1.7 mg/dL (1.80-2.40); PHOSPHORUS 3.8 mg/dL (2.5-4.9); POTASSIUM 3.6 mmol/L (3.5-5.1)
[2018-07-03] MEDS: INSULIN LISPRO 100 UNITS/ML SQ PRN (12:41)
[2018-07-03] MEDS ORDERED: MAGNESIUM SULFATE 1 GM in DEXTROSE 5%-WATER 50 ML IV ONE (13:15)
[2018-07-03] MEDS ORDERED: DIGOXIN 250 MCG/ML 2 ML AMP IVP ONE (13:15)
[2018-07-03 13:54] LABS: GLUCOMETER DEV NAME(LOC) 5S 1N; GLUCOSE,POINT OF CARE 196 MG/DL (70-110)
[2018-07-03 13:54] LABS: GLUCOMETER DEV NAME(LOC) 5S 1N; GLUCOSE,POINT OF CARE 160 MG/DL (70-110)
[2018-07-03 13:54] LABS: GLUCOMETER DEV NAME(LOC) 5S 1N; GLUCOSE,POINT OF CARE 352 MG/DL (70-110)
[2018-07-03 13:54] LABS: GLUCOMETER DEV NAME(LOC) 5S 1N; GLUCOSE,POINT OF CARE 280 MG/DL (70-110)
[2018-07-03 19:10] LABS: GLUCOMETER DEV NAME(LOC) 5N.1; GLUCOSE,POINT OF CARE 265 MG/DL (70-110)
[2018-07-03 19:10] LABS: GLUCOMETER DEV NAME(LOC) 5N.1; GLUCOSE,POINT OF CARE 294 MG/DL (70-110)
[2018-07-03 19:11] LABS: GLUCOMETER DEV NAME(LOC) 5N.1; GLUCOSE,POINT OF CARE 259 MG/DL (70-110)
[2018-07-03] MEDS ORDERED: SODIUM CHLORIDE 0.9% 100 ML ONE (22:26)
[2018-07-03 22:38] LABS: GLUCOMETER DEV NAME(LOC) 5N.2; GLUCOSE,POINT OF CARE 197 MG/DL (70-110)
[2018-07-04 00:06] VITALS: BP 116/60
[2018-07-04] MEDS: NITROGLYCERIN 2% (1 GM=INCH) PACKET TP SCH ×3 (00:23→17:05)
[2018-07-04] MEDS: ALBUTEROL SULFATE 2.5 MG/0.5 ML NEB SOLUTION NEB SCH ×4 (02:19→19:33)
[2018-07-04] MEDS: IPRATROPIUM BROMIDE 0.5 MG/2.5 ML NEB SOLUTION NEB SCH ×4 (02:19→19:33)
[2018-07-04 04:11] VITALS: BP 132/93
[2018-07-04] MEDS: PIPERACILLIN SODIUM/TAZOBACTAM 2.25 GM in DEXTROSE 5%-WATER 50 ML IV SCH ×4 (04:13→21:41)
[2018-07-04] MEDS: INSULIN LISPRO 100 UNITS/ML SQ PRN ×2 (06:29→12:20)
[2018-07-04 06:45] LABS: GLUCOMETER DEV NAME(LOC) 5S.1; GLUCOSE,POINT OF CARE 214 MG/DL (70-110)
[2018-07-04 06:48] LABS: BASOPHILS % (AUTO) 0.1 % (0.0-2.0); EOSINOPHILS % (AUTO) 0 % (1.0-6.0); HEMATOCRIT 28.3 % (36-46); HEMOGLOBIN 9.9 g/dL (12.0-16.0); LYMPHOCYTES # (AUTO) 0.4 K/uL (1.0-4.8); MEAN CORPUSCULAR HEMOGLOBIN 34.1 pg (26.0-34.0); MEAN CORPUSCULAR HGB CONC 34.9 G/dL (31.0-37.0); MEAN CORPUSCULAR VOLUME 98 fL (80-100); MONOCYTES # (AUTO) 0.6 K/uL (0.1-1.0); MONOCYTES % (AUTO) 4.2 % (2.0-9.0); NEUTROPHILS # (AUTO) 13.8 K/uL (1.8-7.7); PLATELET COUNT (AUTO) 199 K/uL (150-450); RED CELL DISTRIBUTION WIDTH 14.5 % (11.5-14.5)
[2018-07-04 06:52] LABS: NEUTROPHILS % (AUTO) 92.7 % (40.0-70.0)
[2018-07-04 07:02] VITALS: BP 125/96
[2018-07-04 07:23] LABS: BILIRUBIN,TOTAL 0.9 mg/dL (0.1-1.0); CALCIUM, TOTAL 7.9 mg/dL (8.8-10.5); CREATININE 1.31 mg/dL (0.60-1.30); MAGNESIUM 2.2 mg/dL (1.80-2.40); PHOSPHORUS 3.7 mg/dL (2.5-4.9); POTASSIUM 3.5 mmol/L (3.5-5.1)
[2018-07-04 07:35] LABS: % IRON SATURATION 27.1 % (22-44)
[2018-07-04] MEDS ORDERED: SODIUM CHLORIDE 0.45% 1,000 ML IV SCH (07:54)
[2018-07-04] MEDS ORDERED: EPOETIN ALFA 10,000 UNITS/ML VIAL SQ SCH (09:00)
[2018-07-04] MEDS: LISINOPRIL 5 MG TABLET PO SCH (09:00)
[2018-07-04] MEDS: METOPROLOL TARTRATE 50 MG TABLET PO SCH ×2 (09:00→21:00)
[2018-07-04] MEDS: ASPIRIN 81 MG CHEWABLE TABLET PO SCH (09:00)
[2018-07-04] MEDS: CLOPIDOGREL BISULFATE 75 MG TABLET PO SCH (09:00)
[2018-07-04] MEDS: ATORVASTATIN CALCIUM 40 MG TABLET PO SCH (09:01)
[2018-07-04] MEDS: PANTOPRAZOLE SODIUM 40 MG/VIAL IVP SCH ×2 (09:01→20:25)
[2018-07-04] MEDS: INSULIN GLARGINE,HUM.REC.ANLOG 100 UNITS/ML SQ SCH ×2 (09:04→21:00)
[2018-07-04 11:28] VITALS: BP 103/73
[2018-07-04 12:40] LABS: GLUCOMETER DEV NAME(LOC) 5N.2; GLUCOSE,POINT OF CARE 227 MG/DL (70-110)
[2018-07-04 15:13] VITALS: BP 129/73
[2018-07-04 19:50] VITALS: BP 107/70
[2018-07-04] MEDS ORDERED: APIXABAN 2.5 MG TABLET PO SCH (21:00)
[2018-07-04] MEDS: LACTOBACILLUS ACIDOPHILUS/BULGARICUS GRANULES PACKET NG SCH (21:30)
[2018-07-04] MEDS ORDERED: SODIUM CHLORIDE 0.9% 100 ML ONE (21:48)
[2018-07-05 00:20] VITALS: BP 99/64
[2018-07-05] MEDS: ALBUTEROL SULFATE 2.5 MG/0.5 ML NEB SOLUTION NEB SCH ×2 (02:29→08:36)
[2018-07-05] MEDS: IPRATROPIUM BROMIDE 0.5 MG/2.5 ML NEB SOLUTION NEB SCH ×2 (02:29→08:36)
[2018-07-05] MEDS: PIPERACILLIN SODIUM/TAZOBACTAM 2.25 GM in DEXTROSE 5%-WATER 50 ML IV SCH ×2 (03:54→09:24)
[2018-07-05 05:00] VITALS: BP 130/71
[2018-07-05 07:30] LABS: BASOPHILS % (AUTO) 0.3 % (0.0-2.0); EOSINOPHILS % (AUTO) 0 % (1.0-6.0); HEMATOCRIT 30.9 % (36-46); HEMOGLOBIN 10.2 g/dL (12.0-16.0); LYMPHOCYTES # (AUTO) 0.4 K/uL (1.0-4.8); LYMPHOCYTES % (AUTO) 2.2 % (22.0-44.0); MEAN CORPUSCULAR HEMOGLOBIN 32.6 pg (26.0-34.0); MEAN CORPUSCULAR HGB CONC 33.1 G/dL (31.0-37.0); MEAN CORPUSCULAR VOLUME 99 fL (80-100); MONOCYTES # (AUTO) 0.7 K/uL (0.1-1.0); MONOCYTES % (AUTO) 3.8 % (2.0-9.0); NEUTROPHILS # (AUTO) 15.9 K/uL (1.8-7.7); PLATELET COUNT (AUTO) 214 K/uL (150-450); RED BLOOD CELL COUNT(AUTO) 3.13 MIL/uL (4.00-5.20); RED CELL DISTRIBUTION WIDTH 14.5 % (11.5-14.5)
[2018-07-05 07:32] LABS: NEUTROPHILS % (AUTO) 93.7 % (40.0-70.0)
[2018-07-05 07:40] LABS: PROTHROMBIN TIME 10.9 SEC (9.4-11.6)
[2018-07-05 07:57] VITALS: BP 117/67
[2018-07-05] MEDS: NITROGLYCERIN 2% (1 GM=INCH) PACKET TP SCH ×2 (08:39)
[2018-07-05] MEDS: METOPROLOL TARTRATE 50 MG TABLET PO SCH (09:00)
[2018-07-05] MEDS: INSULIN GLARGINE,HUM.REC.ANLOG 100 UNITS/ML SQ SCH (09:00)
[2018-07-05] MEDS ORDERED: MULTIVITAMINS WITH MINERALS, THERAPEUTIC 15 ML UDCUP NG SCH (09:00)
[2018-07-05] MEDS: LISINOPRIL 5 MG TABLET PO SCH (09:00)
[2018-07-05] MEDS: LACTOBACILLUS ACIDOPHILUS/BULGARICUS GRANULES PACKET NG SCH (09:00)
[2018-07-05] MEDS: ATORVASTATIN CALCIUM 40 MG TABLET PO SCH (09:00)
[2018-07-05] MEDS: PANTOPRAZOLE SODIUM 40 MG/VIAL IVP SCH (09:24)
[2018-07-05 09:45] LABS: ALBUMIN 2.1 g/dL (3.4-5.0); CALCIUM, TOTAL 7.9 mg/dL (8.8-10.5); CREATININE 1.03 mg/dL (0.60-1.30); PHOSPHORUS 3.4 mg/dL (2.5-4.9); POTASSIUM 3.7 mmol/L (3.5-5.1); TOTAL PROTEIN, SERUM 5.7 g/dL (6.4-8.2)
[2018-07-05 11:11] VITALS: BP 114/72
[2018-07-05 12:09] LABS: GLUCOMETER DEV NAME(LOC) 5N.2; GLUCOSE,POINT OF CARE 196 MG/DL (70-110)
[2018-07-05 12:09] LABS: GLUCOMETER DEV NAME(LOC) 5N.2; GLUCOSE,POINT OF CARE 170 MG/DL (70-110)
[2018-07-05 12:09] LABS: GLUCOMETER DEV NAME(LOC) 5N.2; GLUCOSE,POINT OF CARE 133 MG/DL (70-110)
[2018-07-05] MEDS ORDERED: CeFAZolin 1 GM/DEXTROSE 50 ML IV ONE (12:45)
[2018-07-05] MEDS ORDERED: SODIUM CHLORIDE 0.9% 1,000 ML IV ONE (13:13)
[2018-07-05 15:48] LABS: GLUCOMETER DEV NAME(LOC) 5S.1; GLUCOSE,POINT OF CARE 207 MG/DL (70-110)
== END 2018-07-05 13:15 | disposition expired | DRG 870 ==
LOC: EMS 06:45 → ICU 10:01 → 5N 06-30 20:00
PROVIDERS: ADMIT Internal Medicine; ATTEND Internal Medicine
PROC: 02HV33Z Insertion of Infusion Device into Superior Vena Cava, Percutaneous Approach (ICD-10-PCS; principal; 2018-06-22)
PROC: 5A1955Z Respiratory Ventilation, Greater than 96 Consecutive Hours (ICD-10-PCS; 2018-06-22)
PROC: 0BH17EZ Insertion of Endotracheal Airway into Trachea, Via Natural or Artificial Opening (ICD-10-PCS; 2018-06-22)
PROC: 05HY33Z Insertion of Infusion Device into Upper Vein, Percutaneous Approach (ICD-10-PCS; 2018-06-22)
PROC: 04HY32Z Insertion of Monitoring Device into Lower Artery, Percutaneous Approach (ICD-10-PCS; 2018-06-22)
PROC: 05HY33Z Insertion of Infusion Device into Upper Vein, Percutaneous Approach (ICD-10-PCS; 2018-06-28)
PROC: B54MZZA Ultrasonography of Right Upper Extremity Veins, Guidance (ICD-10-PCS; 2018-06-28)
PROC: 05HY33Z Insertion of Infusion Device into Upper Vein, Percutaneous Approach (ICD-10-PCS; 2018-06-29)
PROC: B54MZZA Ultrasonography of Right Upper Extremity Veins, Guidance (ICD-10-PCS; 2018-06-29)
PROC: 0DH63UZ Insertion of Feeding Device into Stomach, Percutaneous Approach (ICD-10-PCS; 2018-07-05)
DX: A41.9 Sepsis, unspecified organism (principal); J96.00 Acute respiratory failure, unspecified whether with hypoxia or hypercapnia; I21.4 Non-ST elevation (NSTEMI) myocardial infarction; J18.9 Pneumonia, unspecified organism; E11.10 Type 2 diabetes mellitus with ketoacidosis without coma; R65.21 Severe sepsis with septic shock; I63.40 Cerebral infarction due to embolism of unspecified cerebral artery; I13.0 Hypertensive heart and chronic kidney disease with heart failure and stage 1 through stage 4 chronic kidney disease, or unspecified chronic kidney disease; N17.9 Acute kidney failure, unspecified; E87.1 Hypo-osmolality and hyponatremia; E46 Unspecified protein-calorie malnutrition; E87.0 Hyperosmolality and hypernatremia; E87.3 Alkalosis; G93.40 Encephalopathy, unspecified; K92.2 Gastrointestinal hemorrhage, unspecified; I48.91 Unspecified atrial fibrillation; I25.10 Atherosclerotic heart disease of native coronary artery without angina pectoris; E11.22 Type 2 diabetes mellitus with diabetic chronic kidney disease; N20.0 Calculus of kidney; I46.9 Cardiac arrest, cause unspecified; I50.9 Heart failure, unspecified; N18.9 Chronic kidney disease, unspecified; E87.6 Hypokalemia; E83.39 Other disorders of phosphorus metabolism; E78.5 Hyperlipidemia, unspecified; D50.0 Iron deficiency anemia secondary to blood loss (chronic); D69.6 Thrombocytopenia, unspecified; E87.5 Hyperkalemia; F03.90 Unspecified dementia, unspecified severity, without behavioral disturbance, psychotic disturbance, mood disturbance, and anxiety; I25.2 Old myocardial infarction; Z79.01 Long term (current) use of anticoagulants; Z86.73 Personal history of transient ischemic attack (TIA), and cerebral infarction without residual deficits; Z79.02 Long term (current) use of antithrombotics/antiplatelets; Z95.1 Presence of aortocoronary bypass graft; Z98.61 Coronary angioplasty status; Z82.49 Family history of ischemic heart disease and other diseases of the circulatory system; Z79.4 Long term (current) use of insulin; Z83.3 Family history of diabetes mellitus; Z79.82 Long term (current) use of aspirin; Z87.01 Personal history of pneumonia (recurrent); M19.90 Unspecified osteoarthritis, unspecified site; Z28.21 Immunization not carried out because of patient refusal
CPT/HCPCS: 31500; 36245; 70450; 70544; 70551; 74018; 76770; 76856; 76937; 82271; 82570; 82805; 83540; 83550; 83605; 83735; 84100; 84132; 84156; 84300; 84540; 87040; 87070; 87081; 87086; 92526; 92610; 93005; 93306; 93880; 93925; 94002; 94003; 94640; 94667; 99291; C9113; G0378; J0330; J0690; J0885; J1160; J1630; J1644; J1720; J1815; J1940; J2370; J2543; J2704; J3370; J3475; J3480; J3490; J7030; J7040; J7050; J7060